=== PATIENT | male | born 1990 | race Caucasian/White ===

== ENCOUNTER 2017-08-18 12:30 | Emergency (ER) | payer SELFPAY ==
[2017-08-18 14:53] VITALS: BP 151/82
--- NOTE | 2017-08-18 15:24 | UC ---
Respiratory Complaint HPI - HPI Summary HPI Summary: This is a 26 yo male with mild asthma who presents with c/o cough, congestion and ST x 1d. He denies n/v/d. He has felt feverish, no measured fever. No known sick contacts. - History of Current Complaint Chief Complaint: UCRespiratory Stated Complaint: COUGH,CHEST VAISHALI Pain Intensity: 0 - Allergies/Home Medications Allergies/Adverse Reactions: Allergies Allergy/AdvReac Type Severity Reaction Status Date / Time No Known Allergies Allergy Verified 08/18/17 14:50 PMH/Surg Hx/FS Hx/Imm Hx Previously Healthy: Yes - Surgical History Surgical History: Yes Surgery Procedure, Year, and Place: heart surgery at age 4 - Family History Known Family History: Positive: None - Social History Alcohol Use: Daily Alcohol Amount: 3-4 beers Substance Use Type: None Smoking Status (MU): Heavy Every Day Tobacco Smoker Type: Cigarettes Amount Used/How Often: 1 ppd Review of Systems Constitutional: Fever, Chills, Fatigue Skin: Negative Eyes: Negative ENT: Sore Throat, Sinus Congestion Respiratory: Cough Cardiovascular: Negative Gastrointestinal: Negative Genitourinary: Negative Motor: Negative Neurovascular: Negative Musculoskeletal: Negative Neurological: Negative Psychological: Negative Is Patient Immunocompromised?: No All Other Systems Reviewed And Are Negative: Yes Physical Exam Triage Information Reviewed: Yes Appearance: Well-Appearing Vital Signs: Initial Vital Signs Temp 99 F 08/18/17 14:48 Pulse 97 08/18/17 14:48 Resp 18 08/18/17 14:48 BP 151/82 08/18/17 14:48 Pulse Ox 100 08/18/17 14:48 ENT: Positive: Pharynx normal, TM dull Neck: Positive: Nontender, No Lymphadenopathy Respiratory: Positive: Lungs clear, Other: - freq dry cough. Negative: Crackles , Rhonchi, Wheezing Cardiovascular: Positive: RRR, No Murmur Abdominal Exam: Normal Abdomen Description: Positive: Nontender Musculoskeletal Exam: Normal Musculoskeletal: Positive: Strength Intact Neurological Exam: Normal Psychological Exam: Normal Skin Exam: Normal UC Diagnostic Evaluation - Laboratory O2 Sat by Pulse Oximetry: 100 Diagnostic Studies Comment: Rapid influenza - neg Respiratory Course/Dx - Course Course Of Treatment: This is an otherwise healthy 26 yo male with h/o cough and congestion. Testing negative for influenza. Recommend supportive care. - Differential Dx/Diagnosis Differential Diagnosis/HQI/PQRI: Bronchitis, Lower Resp Infection, Sinusitis Provider Diagnoses: 1. Upper respiratory infection Discharge - Discharge Plan Condition: Stable Disposition: HOME Patient Education Materials: Upper Respiratory Infection (DC) Forms: *Work Release Referrals: No Primary Care Phys,NOPCP [Primary Care Provider] - Additional Instructions: Instructions: 1. Your testing is negative for the flu 2. Use decongestants to help with your symptoms (Sudafed during daytime hours and Benadryl at night)
== END 2017-08-18 15:48 | disposition home or self-care (01) ==
LOC: UCCORT 12:30
DX: J06.9 Acute upper respiratory infection, unspecified (principal); F17.210 Nicotine dependence, cigarettes, uncomplicated
CPT/HCPCS: 87502; 99201; G0463

== ENCOUNTER 2019-01-29 09:14 | Emergency (ER) | payer SELFPAY ==
[2019-01-29 10:08] VITALS: BP 121/65
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
[2019-01-29] MEDS ORDERED: Ibuprofen ADULT LIQ* 600 MG/30 ML UDC PO ONE (10:28)
[2019-01-29] MEDS ORDERED: Tetan/Diph/Pertus SYR(Tdap)* 0.5 ML SYR(BOOSTRIX) use SYR IM ONE (10:28)
== END 2019-01-29 11:57 | disposition home or self-care (01) ==
LOC: UCCORT 09:14
DX: S50.811A Abrasion of right forearm, initial encounter (principal); S80.811A Abrasion, right lower leg, initial encounter; S43.409A Unspecified sprain of unspecified shoulder joint, initial encounter; S93.401A Sprain of unspecified ligament of right ankle, initial encounter; V86.69XA Passenger of other special all-terrain or other off-road motor vehicle injured in nontraffic accident, initial encounter; Y92.9 Unspecified place or not applicable; F17.210 Nicotine dependence, cigarettes, uncomplicated
CPT/HCPCS: 90471; 90715; 99213; A9270-GY; G0463